=== PATIENT | male | born 1960 | race Caucasian/White ===

== ENCOUNTER 2016-04-29 23:00 | Emergency (ER) | payer OTHER ==
[~2016-04-29] VITALS: Ht 175.3 cm; Wt 73.5 kg
[2016-04-29] MEDS ORDERED: CARVEDILOL6.25 MG ORAL (23:15)
[2016-04-29] MEDS ORDERED: CHLORTHALIDONE25 MG ORAL (23:15)
[2016-04-29] MEDS ORDERED: TdaP Vaccine 0.5ml Syr IM ONE (23:15)
[2016-04-29] MEDS ORDERED: Lidocaine 1% MPF 10mg/ml 5ml INJ ONE (23:45)
[2016-04-30] MEDS ORDERED: IBUPROFEN600 MG ORAL (00:12)
[2016-04-30] MEDS ORDERED: BACITRACIN ZIN1 EACH TOPIC (00:12)
[2016-04-30] MEDS ORDERED: Bacitracin Oint UD TOPIC ONE (00:15)
[2016-04-30 00:19] VITALS: BP 129/82
[2016-04-30 00:28] VITALS: BP 129/82
--- NOTE | 2016-04-30 01:03 | Emergency Room Report ---
History of Present Illness General Chief Complaint: Laceration Source: Patient Present Illness HPI Patient is a 55-year-old male who presented after increased pain to his right small finger. Patient reportedly accidentally cut his finger with scissors. This reportedly occurred during work. Patient is left-hand dominant and works for [employer]. Patient was noted to have no recent tetanus vaccine. Allergies: Coded Allergies: No Known Allergies (Unverified , 04/29/16) Patient History Past Medical History: see triage record Reviewed Nursing Documentation: PMH: Agreed, PSxH: Agreed Nursing Documentation-PMH Hx Hypertension: Yes Review of Systems All Other Systems: negative except mentioned in HPI Physical Exam Vital Signs Date Time Temp Pulse Resp B/P Pulse Ox O2 Delivery O2 Flow Rate FiO2 04/29/16 23:10 98.1 76 16 133/84 98 Room Air General Appearance: well appearing, no apparent distress, alert, GCS 15 Head: normocephalic, atraumatic ENT: hearing grossly normal, normal voice Neck: full range of motion, supple Respiratory: no respiratory distress, speaking full sentences Cardiovascular #1: normal inspection, regular rate, rhythm, no edema Gastrointestinal: normal inspection, non tender Musculoskeletal: normal inspection, back normal, no calf tenderness Neurologic: normal inspection, alert, oriented x3, responsive, normal gait Psychiatric: mood/affect normal Skin: no rash, laceration - v shaped flap to palmar surface of right small finger, no distal numbness Procedures Laceration/Wound Repair Laceration/Wound Repair : Consent: Verbal Wound Location: upper extremity Wound's Depth, Shape: superficial Wound Length (cm): 1 Wound Explored: clean Irrigated w/ Saline (ccs): 5 Betadine Prep?: Yes Anesthesia: 1% Lidocaine Volume Anesthetic (ccs): 1 Wound Debrided: minimal Wound Repaired With: sutures Suture Size/Type: 5:0 Number of Sutures: 3 Layer Closure?: No Sterile Dressing Applied?: Yes Patient Tolerated: Well Complications: None Medical Decision Making Diagnostic Impression: Primary Impression: Laceration ER Course Patient presented for laceration. Differential diagnoses included foreign body , nerve injury, arterial injury among others. Patient's benign exam and does not appear to require any further imaging or laboratory testing at this time. The patient was given tetanus vaccine. Was closed sutures.The patient is advised to follow up with wound check in 3 days . Patient is advised to return if any worsening condition or if any changes in status that are concerning. Last Vital Signs Date Time Temp Pulse Resp B/P Pulse Ox O2 Delivery O2 Flow Rate FiO2 04/30/16 00:28 98.1 66 16 129/82 99 Room Air Status: improved Disposition: HOME, SELF-CARE Condition: Stable Scripts Ibuprofen* (MOTRIN*) 600 Mg Tablet 600 MG ORAL Q8H Y for For Pain, #30 TAB 0 Refills Prov: Arturo Degroot 04/30/16 Bacitracin Zinc* (BACITRACIN ZINC*) 1 Each Packet 1 APPLIC TOPIC THREE TIMES A DAY, #30 PACKET Prov: Arturo Degroot 04/30/16 Referrals: NOT CHOSEN IPA/MD,REFERRING (PCP) Patient Instructions: Laceration Care, Adult Arturo Degroot Apr 30, 2016 01:03
== END 2016-04-30 00:29 | disposition home or self-care (01) ==
LOC: EMR 23:54
DX: S61.216A Laceration without foreign body of right little finger without damage to nail, initial encounter (principal); W45.8XXA Other foreign body or object entering through skin, initial encounter; Y93.9 Activity, unspecified; Y99.0 Civilian activity done for income or pay; Z23 Encounter for immunization; I10 Essential (primary) hypertension
CPT/HCPCS: 90471; 90715